=== PATIENT | female | born 1955 | race Caucasian/White ===

== ENCOUNTER 2017-02-26 22:07 | Emergency (ER) | payer MEDICAID ==
[2017-02-26] MEDS ORDERED: Sodium Chloride 0.9% 10 ML Syringe FLUSH PRN (23:51)
[2017-02-26] MEDS ORDERED: Labetalol 20 MG/4 ML Syringe IVPUSH ONE (23:51)
--- NOTE | 2017-02-27 01:12 | EDM.PDOC ---
ED HPI GENERAL MEDICAL PROBLEM - General Chief Complaint: Cardiovascular Problem Stated Complaint: HIHG BP Time Seen by Provider: 02/26/17 23:45 Source of Information: Reports: Patient History Limitations: Reports: No Limitations - History of Present Illness INITIAL COMMENTS - FREE TEXT/NARRATIVE: History of present illness: [62-year-old female who is presenting with headache at the base of her right occiput and high blood pressure. She had to put her dog down today and is sad about that. She's concerned that her blood pressure being elevated is causing her headache. She has no neck stiffness no fevers or chills no recent cold symptoms no chest pain or shortness of breath] Review of systems: As per history of present illness and below otherwise all systems reviewed and negative. Past medical history: As per history of present illness and as reviewed below otherwise noncontributory. Surgical history: As per history of present illness and as reviewed below otherwise noncontributory. Social history: No reported history of drug or alcohol abuse. Family history: As per history of present illness and as reviewed below otherwise noncontributory. Physical exam: HEENT: Atraumatic, normocephalic, pupils reactive, negative for conjunctival pallor or scleral icterus, mucous membranes moist, throat clear, neck supple, nontender, trachea midline. Lungs: Clear to auscultation, breath sounds equal bilaterally, chest nontender. Heart: S1S2, regular, negative for clicks, rubs, or JVD. Abdomen: Soft, nondistended, nontender. Negative for masses or hepatosplenomegaly. Negative for costovertebral tenderness. Extremities: Atraumatic, negative for cords or calf pain. Neurovascular unremarkable. Neuro: Awake, alert, oriented. Cranial nerves II through XII unremarkable. Cerebellum unremarkable. Motor and sensory unremarkable throughout. Exam nonfocal. Diagnostics: [] Therapeutics: [Patient was given labetalol 20 mg IV for elevated blood pressure came down nicely and her headache subsided. She was happy with result.] Impression: [Hypertension Headache] Plan: [She apparently is supposed to be on some blood pressure medications and needs to go to the pharmacy and pick those up and will work on doing that tomorrow.] Definitive disposition and diagnosis as appropriate pending reevaluation and review of above. Head Pain Score (Numeric/FACES): 7 - Related Data Allergies Allergy/AdvReac Type Severity Reaction Status Date / Time latex Allergy Rash Verified 02/26/17 23:41 metronidazole [From Flagyl] Allergy Nausea Verified 02/26/17 23:41 morphine Allergy Cannot Verified 02/26/17 23:41 Remember amoxicillin [Amoxicillin] AdvReac Dizziness Verified 02/26/17 23:41 atorvastatin calcium AdvReac Muscle Verified 02/26/17 23:41 [From Lipitor] Weakness Sulfa (Sulfonamide AdvReac Stomach Verified 02/26/17 23:41 Antibiotics) Ache Home Meds: Home Meds Ibuprofen 600 mg PO QID PRN 06/18/15 [History] Multivitamin with Minerals [Multiple Vitamin] 1 tab PO DAILY 06/18/15 [History] Ciprofloxacin HCl [Cipro] 250 mg PO BID 02/26/17 [History] Levothyroxine [Synthroid] 100 mcg PO DAILY 02/26/17 [History] Past Medical History HEENT History: Reports: Impaired Vision Cardiovascular History: Reports: Hypertension Genitourinary History: Reports: UTI, Recurrent 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: Musculoskeletal History: Reports: Arthritis, Other (See Below) Other Musculoskeletal History: ruptured disc with repair 1992 Endocrine/Metabolic History: Reports: Hypoparathyroidism Hematologic History: Reports: Blood Transfusion(s) Other Hematologic History: had some lymphs removed - Past Surgical History GI Surgical History: Reports: Cholecystectomy Other GI Surgeries/Procedures: lymph nodes removed from abd Musculoskeletal Surgical History: Reports: Other (See Below) Other Musculoskeletal Surgeries/Procedures:: left foot surgery, disc repair 1992 Social & Family History - Tobacco Use Smoking Status *Q: Current Every Day Smoker Years of Tobacco use: 40 Packs/Tins Daily: 1 Second Hand Smoke Exposure: Yes - Caffeine Use Caffeine Use: Reports: Coffee - Recreational Drug Use Recreational Drug Use: No ED ROS GENERAL - Review of Systems Review Of Systems: ROS reveals no pertinent complaints other than HPI. ED EXAM, GENERAL - Physical Exam Exam: See Below Course - Vital Signs Last Recorded V/S: Last Vital Signs Temp 35.9 C 02/26/17 23:37 Pulse 57 L 02/27/17 00:20 Resp 16 02/27/17 00:20 BP 147/87 H 02/27/17 00:20 Pulse Ox 96 02/27/17 00:20 - Orders/Labs/Meds Orders: Active Orders 24 hr Category Date Time Status Sodium Chloride 0.9% [Saline Flush] Med 02/26/17 23:51 Active 10 ml FLUSH ASDIRECTED PRN Saline Lock Insert [OM.PC] Stat Oth 02/26/17 23:51 Ordered Medication Orders Sodium Chloride (Saline Flush) 10 ml FLUSH ASDIRECTED PRN PRN Reason: Keep Vein Open Last Admin: 02/27/17 00:09 Dose: 10 ml Meds: Medications Generic Name Dose Route Start Last Admin Trade Name Freq PRN Reason Stop Dose Admin Sodium Chloride 10 ml 02/26/17 23:51 02/27/17 00:09 Saline Flush FLUSH 10 ml ASDIRECTED PRN Administration Keep Vein Open Discontinued Medications Generic Name Dose Route Start Last Admin Trade Name Freq PRN Reason Stop Dose Admin Labetalol HCl 20 mg 02/26/17 23:51 02/27/17 00:08 Normodyne IVPUSH 02/26/17 23:52 20 mg NOW ONE Administration Protocol Departure - Departure Time of Disposition: 01:11 Disposition: Home, Self-Care 01 Condition: Good Clinical Impression: Hypertension Qualifiers: Hypertension type: unspecified Qualified Code(s): I10 - Essential (primary) hypertension Headache Qualifiers: Headache type: unspecified Headache chronicity pattern: acute headache Forms: ED Department Discharge Additional Instructions: As we discussed to try to get back onto your blood pressure medications and follow up with your doctor so that you can be certain that you're taking the right dose of your medication. - My Orders Last 24 Hours: My Active Orders 02/26/17 23:51 Sodium Chloride 0.9% [Saline Flush] 10 ml FLUSH ASDIRECTED PRN Saline Lock Insert [OM.PC] Stat - Assessment/Plan Last 24 Hours: My Active Orders 02/26/17 23:51 Sodium Chloride 0.9% [Saline Flush] 10 ml FLUSH ASDIRECTED PRN Saline Lock Insert [OM.PC] Stat
[2017-02-27 01:28] VITALS: BP 147/93
== END 2017-02-27 01:29 | disposition home or self-care (01) ==
LOC: JP.ED 22:07
DX: I10 Essential (primary) hypertension (principal); E21.3 Hyperparathyroidism, unspecified; Z90.49 Acquired absence of other specified parts of digestive tract; Z98.890 Other specified postprocedural states; Z79.899 Other long term (current) drug therapy; Z91.040 Latex allergy status; Z88.5 Allergy status to narcotic agent; Z88.1 Allergy status to other antibiotic agents; Z88.2 Allergy status to sulfonamides; Z88.8 Allergy status to other drugs, medicaments and biological substances
CPT/HCPCS: 96374; 99284; J7050

== ENCOUNTER 2017-06-04 17:44 | Emergency (ER) | payer MEDICAID ==
[2017-06-04] MEDS ORDERED: Pantoprazole 40 MG Vial IVPUSH ONE (20:15)
[2017-06-04] MEDS ORDERED: Ondansetron 4 MG/2 ML SDV IVPUSH ONE (20:15)
[2017-06-04] MEDS ORDERED: Sodium Chloride 0.9% 1,000 ML IV SCH (20:15)
[2017-06-04] MEDS ORDERED: Sodium Chloride 0.9% 10 ML Syringe FLUSH PRN (20:38)
[2017-06-04] MEDS ORDERED: Iopamidol 612 MG/ML 150 ML Bottle IV SCH (20:45)
[2017-06-04] MEDS ORDERED: Sodium Chloride 0.9% 80 ML IV SCH (20:45)
[2017-06-04] MEDS ORDERED: cefTRIAXone 1 GM in Sodium Chloride 0.9% 50 ML IV ONE (20:57)
[2017-06-04] MEDS ORDERED: Lactated Ringers 1,000 ML IV SCH (22:15)
--- NOTE | 2017-06-05 00:33 | EDM.PDOC ---
ED HPI GENERAL MEDICAL PROBLEM - General Chief Complaint: Abdominal Pain Stated Complaint: ABD PAIN Time Seen by Provider: 06/04/17 19:45 Source of Information: Reports: Patient History Limitations: Reports: No Limitations - History of Present Illness INITIAL COMMENTS - FREE TEXT/NARRATIVE: abdominal pain: this is a 62-year-old female presents emergency room with complaints of abdominal pain 4 days. For last 3 days as on been unable to eat or drink fluids without nausea and vomiting. Today she reports her abdomen is quite distended and tender to touch, last bowel movement 4 days ago. Now feeling weak and fatigued. denies fever, chills, chest pain or shortness of breast. Past surgical history: gallbladder, lymph nodes removed from abdomen for unknown reason, back surgery, and right foot infection. Onset: Gradual Duration: Day(s): (4 days), Getting Worse Location: Reports: Abdomen Severity: Moderate Improves with: Reports: Immobilization, Rest Worsens with: Reports: Movement Context: Reports: Other (abdominal pain with nausea and vomiting) Associated Symptoms: Reports: Nausea/Vomiting, Weakness Abdomen Pain Score (Numeric/FACES): 5 - Related Data Allergies Allergy/AdvReac Type Severity Reaction Status Date / Time latex Allergy Rash Verified 02/26/17 23:41 morphine Allergy Cannot Verified 02/26/17 23:41 Remember amoxicillin [Amoxicillin] AdvReac Dizziness Verified 02/26/17 23:41 atorvastatin calcium AdvReac Muscle Verified 02/26/17 23:41 [From Lipitor] Weakness metronidazole [From Flagyl] AdvReac Nausea Verified 02/28/17 08:28 Sulfa (Sulfonamide AdvReac Stomach Verified 02/26/17 23:41 Antibiotics) Ache Home Meds: Home Meds Ibuprofen 600 mg PO QID PRN 06/18/15 [History] Multivitamin with Minerals [Multiple Vitamin] 1 tab PO DAILY 06/18/15 [History] Ciprofloxacin HCl [Cipro] 250 mg PO BID 02/26/17 [History] Levothyroxine [Synthroid] 100 mcg PO DAILY 02/26/17 [History] Past Medical History HEENT History: Reports: Impaired Vision Cardiovascular History: Reports: Hypertension Genitourinary History: Reports: UTI, 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: Musculoskeletal History: Reports: Arthritis, Other (See Below) Other Musculoskeletal History: ruptured disc with repair 1992 Endocrine/Metabolic History: Reports: Hypoparathyroidism Hematologic History: Reports: Blood Transfusion(s) Other Hematologic History: had some lymphs removed - Past Surgical History GI Surgical History: Reports: Cholecystectomy Other GI Surgeries/Procedures: lymph nodes removed from abd Musculoskeletal Surgical History: Reports: Other (See Below) Other Musculoskeletal Surgeries/Procedures:: left foot surgery, disc repair 1992 Social & Family History - Tobacco Use Smoking Status *Q: Unknown Ever Smoked Years of Tobacco use: 40 Packs/Tins Daily: 1 Second Hand Smoke Exposure: Yes - Caffeine Use Caffeine Use: Reports: Coffee - Recreational Drug Use Recreational Drug Use: No - Living Situation & Occupation Living situation: Reports: ED ROS GENERAL - Review of Systems Review Of Systems: See Below Constitutional: Reports: Malaise, Weakness, Other (unable to tolerate any solids or liquids 3 days, abdominal pain 4 days) HEENT: Reports: Throat Pain (Mouth and throat feel dry ) Respiratory: Reports: No Symptoms Cardiovascular: Reports: No Symptoms Endocrine: Reports: No Symptoms GI/Abdominal: Reports: Abdominal Pain, Decreased Appetite, Distension, Nausea, Vomiting : Reports: Pain (Low pelvis) Musculoskeletal: Reports: Muscle Pain Skin: Reports: No Symptoms Neurological: Reports: No Symptoms Psychiatric: Reports: No Symptoms Hematologic/Lymphatic: Reports: No Symptoms Immunologic: Reports: No Symptoms ED EXAM, GI/ABD - Physical Exam Exam: See Below Exam Limited By: No Limitations General Appearance: Alert, WD/WN, Moderate Distress Eyes: Bilateral: Normal Appearance Ears: Normal External Exam, Normal Canal, Hearing Grossly Normal, Normal TMs Nose: Normal Inspection, Normal Mucosa, No Blood Throat/Mouth: Normal Lips, Normal Teeth, Other (mucous membranes dry). No: Normal Voice Head: Atraumatic, Normocephalic Neck: Normal Inspection, Supple, Non-Tender, Full Range of Motion Respiratory/Chest: No Respiratory Distress, Lungs Clear, Normal Breath Sounds, No Accessory Muscle Use, Chest Non-Tender Cardiovascular: Regular Rate, Rhythm, No Murmur GI/Abdominal Exam: Distended, Guarding, Tender, Abnormal Bowel Sounds (Female) Exam: Deferred Rectal (Female) Exam: Deferred (uterus was read as a 7 mL 10 until the day but I did tell the doctor was 3 but was obstructing cystic susceptibility) Back Exam: Normal Inspection, Full Range of Motion (he will) Extremities: Normal Inspection, Normal Range of Motion, Non-Tender, No Pedal Edema, Normal Capillary Refill Neurological: Alert, Oriented, Normal Gait, No Motor/Sensory Deficits Psychiatric: Normal Affect, Normal Mood Skin Exam: Warm, Dry, Intact, Normal Color, No Rash Lymphatic: No Adenopathy Course - Vital Signs Last Recorded V/S: Last Vital Signs Temp 36.8 C 06/04/17 23:39 Pulse 71 06/04/17 23:39 Resp 16 06/04/17 23:39 BP 144/97 H 06/04/17 23:39 Pulse Ox 94 L 06/04/17 23:39 - Orders/Labs/Meds Orders: Active Orders 24 hr Category Date Time Status Gastrointestinal Tube Mgmt [RC] ASDIRECTED Care 06/04/17 23:15 Active Abdomen Pelvis wo Cont [CT] Stat Exams 06/04/17 20:14 Taken Iopamidol [Isovue-300 (61%)] Med 06/04/17 20:45 Active 123 ml IV . DIRECTED Lactated Ringers [Ringers, Lactated] 1,000 ml Med 06/04/17 22:15 Active IV ASDIRECTED Sodium Chloride 0.9% [Normal Saline] 1,000 ml Med 06/04/17 20:15 Active IV ASDIRECTED Sodium Chloride 0.9% [Normal Saline] 80 ml Med 06/04/17 20:45 Active IV ASDIRECTED Sodium Chloride 0.9% [Saline Flush] Med 06/04/17 20:38 Active 10 ml FLUSH ASDIRECTED PRN NG [Nasogastric Orogastric Tube Insertion] [OM.PC] Oth 06/04/17 23:15 Ordered Routine Medication Orders Sodium Chloride (Normal Saline) 1,000 mls @ 999 mls/hr IV ASDIRECTED SAUL Last Admin: 06/04/17 20:50 Dose: 999 mls/hr Sodium Chloride (Normal Saline) 80 mls @ 3 mls/sec IV ASDIRECTED SAUL Lactated Ringer's (Ringers, Lactated) 1,000 mls @ 500 mls/hr IV ASDIRECTED SAUL Last Admin: 06/04/17 22:42 Dose: 500 mls/hr Iopamidol (Isovue-300 (61%)) 123 ml IV . DIRECTED SAUL Sodium Chloride (Saline Flush) 10 ml FLUSH ASDIRECTED PRN PRN Reason: Keep Vein Open Last Admin: 06/04/17 20:52 Dose: 10 ml Labs: Laboratory Tests 06/04/17 06/04/17 06/04/17 Range/Units 19:06 20:33 20:33 WBC 14.4 H (4.5-11.0) K/uL RBC 5.98 H (3.30-5.50) M/uL Hgb 17.1 H D (12.0-15.0) g/dL Hct 48.1 H (36.0-48.0) % MCV 80 (80-98) fL MCH 29 (27-31) pg MCHC 36 (32-36) % Plt Count 259 (150-400) K/uL Neut % (Auto) 72 H (36-66) % Lymph % (Auto) 17 L (24-44) % [place] % (Auto) 10 H (2-6) % Eos % (Auto) 0 L (2-4) % Baso % (Auto) 0 (0-1) % Sodium 130 L (140-148) mmol/L Potassium 3.7 (3.6-5.2) mmol/L Chloride 92 L (100-108) mmol/L Carbon Dioxide 30 (21-32) mmol/L Anion Gap 11.7 (5.0-14.0) mmol/L BUN 32 H D (7-18) mg/dL Creatinine 1.3 H D (0.6-1.0) mg/dL Est Cr Clr Drug Dosing 43.37 mL/min Estimated GFR (MDRD) 42 L (>60) Glucose 110 H (74-106) mg/dL Lactic Acid (0.4-2.0) mmol/L Calcium 9.4 (8.5-10.1) mg/dL Total Bilirubin 0.7 D (0.2-1.0) mg/dL AST 21 (15-37) U/L ALT 27 (12-78) U/L Alkaline Phosphatase 99 (46-116) U/L Total Protein 7.7 (6.4-8.2) g/dL Albumin 3.8 (3.4-5.0) g/dL Globulin 3.9 H (2.3-3.5) g/dL Albumin/Globulin Ratio 1.0 L (1.2-2.2) Amylase 49 (25-115) U/L Lipase 96 (73-393) U/L Urine Color Yellow Urine Appearance Slightly cloudy Urine pH 5.0 (4.5-8.0) Ur Specific [place] 1.025 (1.008-1.030) Urine Protein Trace (NEGATIVE) mg/dL Urine Glucose (UA) Normal (NEGATIVE) mg/dL Urine Ketones 15 H (NEGATIVE) mg/dL Urine Occult Blood Moderate (NEGATIVE) Urine Nitrite Negative (NEGATIVE) Urine Bilirubin Small (NEGATIVE) Urine Urobilinogen 1 (NORMAL) mg/dL Ur Leukocyte Esterase Moderate (NEGATIVE) Urine RBC 5-10 H (0-5) Urine WBC 20-30 H (0-5) Ur Epithelial Cells Moderate Amorphous Sediment Few Urine Bacteria Many Urine Mucus Moderate 10/18/17 Range/Units 20:49 WBC (4.5-11.0) K/uL RBC (3.30-5.50) M/uL Hgb (12.0-15.0) g/dL Hct (36.0-48.0) % MCV (80-98) fL MCH (27-31) pg MCHC (32-36) % Plt Count (150-400) K/uL Neut % (Auto) (36-66) % Lymph % (Auto) (24-44) % [place] % (Auto) (2-6) % Eos % (Auto) (2-4) % Baso % (Auto) (0-1) % Sodium (140-148) mmol/L Potassium (3.6-5.2) mmol/L Chloride (100-108) mmol/L Carbon Dioxide (21-32) mmol/L Anion Gap (5.0-14.0) mmol/L BUN (7-18) mg/dL Creatinine (0.6-1.0) mg/dL Est Cr Clr Drug Dosing mL/min Estimated GFR (MDRD) (>60) Glucose (74-106) mg/dL Lactic Acid 1.4 (0.4-2.0) mmol/L Calcium (8.5-10.1) mg/dL Total Bilirubin (0.2-1.0) mg/dL AST (15-37) U/L ALT (12-78) U/L Alkaline Phosphatase (46-116) U/L Total Protein (6.4-8.2) g/dL Albumin (3.4-5.0) g/dL Globulin (2.3-3.5) g/dL Albumin/Globulin Ratio (1.2-2.2) Amylase (25-115) U/L Lipase (73-393) U/L Urine Color Urine Appearance Urine pH (4.5-8.0) Ur Specific [place] (1.008-1.030) Urine Protein (NEGATIVE) mg/dL Urine Glucose (UA) (NEGATIVE) mg/dL Urine Ketones (NEGATIVE) mg/dL Urine Occult Blood (NEGATIVE) Urine Nitrite (NEGATIVE) Urine Bilirubin (NEGATIVE) Urine Urobilinogen (NORMAL) mg/dL Ur Leukocyte Esterase (NEGATIVE) Urine RBC (0-5) Urine WBC (0-5) Ur Epithelial Cells Amorphous Sediment Urine Bacteria Urine Mucus Meds: Medications Generic Name Dose Route Start Last Admin Trade Name Freq PRN Reason Stop Dose Admin Sodium Chloride 1,000 mls @ 999 mls/hr 06/04/17 20:15 06/04/17 20:50 Normal Saline IV 999 mls/hr ASDIRECTED SAUL Administration Sodium Chloride 80 mls @ 3 mls/sec 06/04/17 20:45 Normal Saline IV ASDIRECTED SAUL Lactated Ringer's 1,000 mls @ 500 mls/hr 06/04/17 22:15 06/04/17 22:42 Ringers, Lactated IV 500 mls/hr ASDIRECTED SAUL Administration Iopamidol 123 ml 06/04/17 20:45 Isovue-300 (61%) IV . DIRECTED SAUL Sodium Chloride 10 ml 06/04/17 20:38 06/04/17 20:52 Saline Flush FLUSH 10 ml ASDIRECTED PRN Administration Keep Vein Open Discontinued Medications Generic Name Dose Route Start Last Admin Trade Name Freq PRN Reason Stop Dose Admin Ceftriaxone Sodium 1 gm/ 50 mls @ 100 mls/hr 06/04/17 20:57 06/04/17 21:45 Sodium Chloride IV 06/04/17 21:26 100 mls/hr ONETIME ONE Administration Ondansetron HCl 4 mg 06/04/17 20:15 06/04/17 20:51 Zofran IVPUSH 06/04/17 20:16 4 mg ONETIME ONE Administration Pantoprazole Sodium 40 mg 06/04/17 20:15 06/04/17 20:51 Protonix Iv IVPUSH 10/18/17 20:16 40 mg ONETIME ONE Administration - Re-Assessments/Exams Free Text/Narrative Re-Assessment/Exam: due to patient's acute abdominal pain, IV access and fluids were started, IV Zofran 4 mg, IV Protonix 40 mg. IV Rocephin 1 g labs: -Urine positive, WBCs positive leukocytes, CBC white count elevated at 14.14, chemistry panel -Imaging : impression distal small bowel obstruction. The transition zone appears to be within the mid line lower abdomen at the level of the mid to distal ileum. Small bowel space amount of free fluid. No pneumatosis or free air. 2. colonic diverticulosis. Space 3. status post cholecystectomy medications: IV Rocephin, IV Protonix 40 mg, IV fluids 2 L intervention: keep nothing by mouth, NG tube placed to low suction Plan: consulted with [facility], will accept patient for further care and treatment. Patient and her are agreeable to plan of care. We will transported via EMS. Departure - Departure Time of Disposition: 00:43 Disposition: DC/Tfer to Acute Hospital 02 Condition: Fair Clinical Impression: Small bowel obstruction - Discharge Information Referrals: Diogo Monzon MD [Primary Care Provider] - Care Plan Goals: small bowel obstruction Plan. Transfer to [facility] for admission. - My Orders Last 24 Hours: My Active Orders 06/04/17 20:14 Abdomen Pelvis wo Cont [CT] Stat 06/04/17 20:15 Sodium Chloride 0.9% [Normal Saline] 1,000 ml IV ASDIRECTED 06/04/17 20:38 Sodium Chloride 0.9% [Saline Flush] 10 ml FLUSH ASDIRECTED PRN 06/04/17 20:45 Iopamidol [Isovue-300 (61%)] 123 ml IV . DIRECTED Sodium Chloride 0.9% [Normal Saline] 80 ml IV ASDIRECTED 06/04/17 22:15 Lactated Ringers [Ringers, Lactated] 1,000 ml IV ASDIRECTED 06/04/17 23:15 Gastrointestinal Tube Mgmt [RC] ASDIRECTED NG [Nasogastric Orogastric Tube Insertion] [OM.PC] Routine - Assessment/Plan Last 24 Hours: My Active Orders 06/04/17 20:14 Abdomen Pelvis wo Cont [CT] Stat 06/04/17 20:15 Sodium Chloride 0.9% [Normal Saline] 1,000 ml IV ASDIRECTED 06/04/17 20:38 Sodium Chloride 0.9% [Saline Flush] 10 ml FLUSH ASDIRECTED PRN 06/04/17 20:45 Iopamidol [Isovue-300 (61%)] 123 ml IV . DIRECTED Sodium Chloride 0.9% [Normal Saline] 80 ml IV ASDIRECTED 06/04/17 22:15 Lactated Ringers [Ringers, Lactated] 1,000 ml IV ASDIRECTED 06/04/17 23:15 Gastrointestinal Tube Mgmt [RC] ASDIRECTED NG [Nasogastric Orogastric Tube Insertion] [OM.PC] Routine
[2017-06-05 00:53] VITALS: BP 138/73
== END 2017-06-05 02:55 ==
LOC: JP.ED 17:44
DX: K56.609 Unspecified intestinal obstruction, unspecified as to partial versus complete obstruction (principal); I10 Essential (primary) hypertension; Z91.040 Latex allergy status; Z88.2 Allergy status to sulfonamides; Z88.8 Allergy status to other drugs, medicaments and biological substances; Z88.5 Allergy status to narcotic agent; Z79.899 Other long term (current) drug therapy
CPT/HCPCS: 36415; 74176; 80053; 81001; 82150; 83605; 83690; 85025; 96361; 96365; 96375; 99285; C9113; J0696; J2405; J7040; J7050; J7120

== ENCOUNTER 2017-10-23 06:32 | Day surgery (SDC) | payer MEDICAID ==
[2017-10-23] MEDS ORDERED: Sodium Chloride 0.9% 10 ML Syringe FLUSH PRN (07:00)
[2017-10-23 08:11] VITALS: BP 156/88
--- NOTE | 2017-10-23 12:53 | OR ---
DATE OF PROCEDURE: 10/23/2017 POSTOPERATIVE CARE: Postoperative care will be provided mainly at the [address] [place] [address] [facility] in conjunction with [facility]. PREOPERATIVE DIAGNOSIS: Cataract, left eye. POSTOPERATIVE DIAGNOSIS: Cataract, left eye. PROCEDURE: Phacoemulsification with intraocular lens placement, left eye. ANESTHESIA: Topical and intracameral. ESTIMATED BLOOD LOSS: Minimal. COMPLICATIONS: None. PATHOLOGY SPECIMENS: None. SURGICAL FINDINGS: None. INDICATION FOR PROCEDURE: The patient is a 62-year-old female with history of a visually significant cataract in the left eye, which interfered with activities of daily living. This consisted of a nuclear sclerosis cataract. Following careful discussion of the risks, benefits and alternatives to cataract extraction with intraocular lens placement including blindness and , the patient elected to proceed, and informed, written consent was obtained prior to the procedure. DESCRIPTION OF THE PROCEDURE: The patient was previously identified, and a monica placed above the left eye. All sources, including the patient, indicated that the left eye was the correct eye. The patient was subsequently taken to the operating room where standard monitors were applied. The patient was then prepped and draped in the usual sterile fashion for ophthalmic surgery. Attention was first directed at the 12 o'clock position where a paracentesis port was fashioned. Shugar solution followed by Viscoat was instilled into the eye. Attention was then directed to the 8:30 position where a triplanar incision was made in a near-clear manner using a keratome. A continuous capsulorrhexis was then made using a combination of the cystotome and Utrata forceps. Hydrodissection was achieved using a balanced salt solution, and the lens rotated nicely. Phacoemulsification was then done using a modified [id number] technique without complication. Phaco time was 5.18 CDE. The remaining cortex was removed using the irrigation/aspiration handpiece. Provisc was then instilled into the eye. A Technis lens, model [id number], at 21.0 diopters was then placed in the capsular bag using an [place] injector. The remaining viscoelastic was removed using the irrigation/aspiration forceps. All wounds were then checked and found to be watertight. The lid speculum and drapes were removed. Maxitrol ointment was placed in the patient's left eye, and the eye was shielded. The patient tolerated the procedure well. The patient was instructed to follow up tomorrow. All needle and sponge counts were correct at the end of the procedure. Amrita Carpenter MD /[id number]
== END 2017-10-23 08:24 | disposition home or self-care (01) ==
LOC: JP.SDS 06:32
PROVIDERS: ATTEND Ophthalmology
DX: H25.12 Age-related nuclear cataract, left eye (principal); F17.200 Nicotine dependence, unspecified, uncomplicated; I10 Essential (primary) hypertension
CPT/HCPCS: 66984; C1780

== ENCOUNTER 2017-11-06 07:10 | Day surgery (SDC) | payer MEDICAID ==
[2017-11-06] MEDS ORDERED: Sodium Chloride 0.9% 10 ML Syringe FLUSH PRN (07:30)
--- NOTE | 2017-11-06 08:49 | OR ---
DATE OF PROCEDURE: 11/06/2017 POSTOPERATIVE CARE: Postoperative care will be provided mainly at the [address] [place] [address] [facility] in conjunction with [facility]. PREOPERATIVE DIAGNOSIS: Cataract, right eye. POSTOPERATIVE DIAGNOSIS: Cataract, right eye. PROCEDURE: Phacoemulsification with intraocular lens placement, right eye. ANESTHESIA: Topical and intracameral. ESTIMATED BLOOD LOSS: Minimal. COMPLICATIONS: None. PATHOLOGY SPECIMENS: None. SURGICAL FINDINGS: None. INDICATION FOR PROCEDURE: The patient is a 62-year-old female with history of a visually significant cataract in the right eye, which interfered with activities of daily living. This consisted of a nuclear sclerosis cataract. Following careful discussion of the risks, benefits and alternatives to cataract extraction with intraocular lens placement including blindness and , the patient elected to proceed, and informed, written consent was obtained prior to the procedure. DESCRIPTION OF THE PROCEDURE: The patient was previously identified, and a monica placed above the right eye. All sources, including the patient, indicated that the right eye was the correct eye. The patient was subsequently taken to the operating room where standard monitors were applied. The patient was then prepped and draped in the usual sterile fashion for ophthalmic surgery. Attention was first directed at the 12 o'clock position where a paracentesis port was fashioned. Shugar solution followed by Viscoat was instilled into the eye. Attention was then directed to the 8:30 position where a triplanar incision was made in a near-clear manner using a keratome. A continuous capsulorrhexis was then made using a combination of the cystotome and Utrata forceps. Hydrodissection was achieved using a balanced salt solution, and the lens rotated nicely. Phacoemulsification was then done using a modified [id number] technique without complication. Phaco time was 4.49 CDE. The remaining cortex was removed using the irrigation/aspiration handpiece. Provisc was then instilled into the eye. A Technis lens, model FV1385, at 22.0 diopters was then placed in the capsular bag using an [place] injector. The remaining viscoelastic was removed using the irrigation/aspiration forceps. All wounds were then checked and found to be watertight. The lid speculum and drapes were removed. Maxitrol ointment was placed in the patient's right eye, and the eye was shielded. The patient tolerated the procedure well. The patient was instructed to follow up tomorrow. All needle and sponge counts were correct at the end of the procedure. Amrita Carpenter MD /[id number]
[2017-11-06 08:50] VITALS: BP 140/94
== END 2017-11-06 08:52 | disposition home or self-care (01) ==
LOC: JP.SDS 07:10
PROVIDERS: ATTEND Ophthalmology
DX: E11.36 Type 2 diabetes mellitus with diabetic cataract (principal); J45.909 Unspecified asthma, uncomplicated; I10 Essential (primary) hypertension; F17.200 Nicotine dependence, unspecified, uncomplicated; Z88.1 Allergy status to other antibiotic agents; Z88.2 Allergy status to sulfonamides; Z88.5 Allergy status to narcotic agent; Z91.040 Latex allergy status; Z88.8 Allergy status to other drugs, medicaments and biological substances
CPT/HCPCS: 66984; C1780; J7050

== ENCOUNTER 2018-11-17 06:32 | Day surgery (SDC) | payer MEDICAID ==
--- NOTE | 2018-11-13 13:23 | HP ---
Tentatively scheduled for surgical procedure by Dr. Walter Connell on 11/17/2018. IDENTIFYING DATA: Dipika Conti is a 63-year-old female from [place], [place]. CHIEF COMPLAINT: Abdominal discomfort secondary to abdominal wall hernia. HISTORY OF PRESENT ILLNESS: Adult female, has noted a bulge and general discomfort in the upper aspect of the abdomen. On inspection, this was found to represent an abdominal wall hernia. She has history of surgeries of the abdomen including laparoscopic cholecystectomy and laparotomy and release of small-bowel obstruction in the remote past. With ongoing symptoms, she is now tentatively scheduled for a ventral wall hernia repair by Dr. Walter Connell. Symptoms include moderate abdominal cramping and bulge with a period of severe eructation. She has had no obstructive symptoms. Denying emesis, severe abdominal pain, or abdominal ileus. PAST SURGICAL HISTORY: Include cholecystectomy, laparotomy with release of small-bowel obstruction, debridement and repair of an ulcerated lesion over the dorsum of the left foot, cataract surgery, and norman biopsy. PAST MEDICAL HISTORY: Additional chronic health problems include chronic tobacco use, hypothyroidism, hyperlipidemia, and essential hypertension. HABITS: Smoker of one pack per day. Caffeine intake averages approximately one pot of coffee daily. She uses no alcohol. IMMUNIZATIONS: Does receive annual influenza vaccines. Tetanus booster provided in January 2018. No previous pneumococcal vaccine. ALLERGIES: REPORTS RASH WITH LATEX CONTACT, GENERAL MYALGIAS AND WEAKNESS WITH LIPITOR, NONSPECIFIC REACTION TO AMOXICILLIN, GI INTOLERANCE WITH SULFA AND METRONIDAZOLE, TRIPP INHIBITOR INDUCED COUGH WITH LISINOPRIL, AND NONSPECIFIC REACTION WITH USE OF MORPHINE PRODUCTS. SOCIAL HISTORY: She is . 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 She performs ADLs independently. Drives without difficulty. Family is available to provide assistance in the perioperative period. FAMILY HISTORY: Denies familial history of anesthetic reactions, coagulopathy, or bleeding disorder. REVIEW OF SYSTEMS: NEUROLOGIC: No history of stroke, seizures, focal weakness, or paresthesias. Glasses are worn. No history of glaucoma or retinopathy. Hearing is intact. CARDIAC: No history of congenital heart disease, rheumatic fever, murmur, MO, congestive heart failure, chest pain, palpitations, or syncope. She does have a history of hyperlipidemia, hypertension without diabetes. RESPIRATORY: Chronic lifelong smoker. No history of obstructive pulmonary disease, asthma, emphysema, chronic cough, tuberculosis, or purulent sputum production. GI: No history of hepatitis, jaundice, chronic dyspepsia, melena, or hematochezia. Status post cholecystectomy. : Mild urinary stress incontinence. No dysuria, renal failure, or gross hematuria. She is postmenopausal. MUSCULOSKELETAL: Occasional mild arthralgias including aching at the knees. No inflammatory arthritis. PHYSICAL EXAMINATION: GENERAL: Appearance is that of an adult female, in no acute distress. VITAL SIGNS: Height 5 feet 6.5 inches, weight 196 pounds with BMI of 31. Blood pressure 118/80, pulse 75, temperature 97.5 degrees Fahrenheit, respiratory rate 16. HEENT: Hearing is intact with normal canals and TMs. Pupils reactive to light. Sclerae anicteric. Extraocular eye movements intact. No nasal congestion. No oropharyngeal lesions or dental appliances. NECK: No adenopathy or thyromegaly. Brisk carotid pulses. No bruits. LUNGS: Clear and nontachypneic. Symmetrical aeration. HEART: Regular without murmurs or gallops noted. Normal sinus rhythm with occasional premature ventricular contractions on 12-lead EKG. No acute or chronic ischemic changes evident. ABDOMEN: Nondistended. Active sounds. No organomegaly. No guarding, rebound, or referred pain. No CVA tenderness. No abdominal bruits. Good femoral pulses. Surgical incision is noted in the ventral midline with bulge in the supraumbilical area. and RECTAL: Omitted. EXTREMITIES: No edema. No ischemic skin changes or varicosities. Good arterial pulses. Brisk capillary refill. IMPRESSION: 1. History of ventral wall hernia of the abdomen. 2. Prior history of laparoscopic cholecystectomy and laparotomy with release of bowel obstruction. 3. Hypothyroidism. 4. Hypertension. 5. Hyperlipidemia. 6. Chronic tobacco use. PLAN: The patient appears to be a stable candidate for tentatively scheduled procedure by Dr. Connell on 11/17/2018. She is instructed to avoid nonsteroidals and aspirin containing agents in preoperative period. Continue with routine use of antihypertensive and levothyroxine replacement therapies. Preoperative labs including CBC and BMP are drawn today with results to be forwarded on completion. Advised smoking cessation. Does recognize that surgical repair will require activity restrictions postoperatively to be outlined by surgical care team. The patient will call if other concerns arise. Jake Monzon MD /[id number]
[2018-11-17] MEDS ORDERED: Acetaminophen 500 MG Tab PO ONE (06:45)
[2018-11-17] MEDS ORDERED: Meropenem 500 MG SDV ONE (06:51)
[2018-11-17] MEDS ORDERED: Bupivacaine 0.5%/EPINEPHrine 1:200,000 50 ML MDV ONE (06:54)
[2018-11-17] MEDS: Dextrose 5%-Lactated Ringers 1,000 ML IV SCH ×4 (06:56→23:52)
[2018-11-17] MEDS ORDERED: fentaNYL 250 MCG/5 ML SDV ONE (07:11)
[2018-11-17] MEDS ORDERED: Rocuronium 50 MG/5 ML Vial ONE ×2 (07:11→08:55)
[2018-11-17] MEDS ORDERED: Propofol 200 MG/20 ML SDV ONE (07:11)
[2018-11-17] MEDS ORDERED: Ondansetron 4 MG/2 ML SDV ONE (07:11)
[2018-11-17] MEDS ORDERED: Neostigmine Methylsulfate 1 MG/ML 5 ML Syringe ONE (07:11)
[2018-11-17] MEDS ORDERED: Dexamethasone 4 MG/ML SDV ONE (07:11)
[2018-11-17] MEDS ORDERED: Glycopyrrolate 0.2 MG/ML 5 ML MDV ONE (07:11)
[2018-11-17] MEDS ORDERED: Albuterol/Ipratropium 3.0-0.5 MG/3 ML Neb Soln NEB ONE (07:30)
[2018-11-17] MEDS ORDERED: Ropivacaine 44 ML, Dexamethasone 8 MG, EPINEPHrine 0.4 MG, Sodium Chloride 0.9% 33.6 ML NERVRT SCH ×4 (08:30)
[2018-11-17] MEDS: ceFAZolin 2 GM in Premix Bag 1 BAG IV ONE ×2 (08:43→11:20)
[2018-11-17] MEDS ORDERED: fentaNYL 100 MCG/2 ML SDV ONE ×2 (09:35→09:40)
[2018-11-17] MEDS ORDERED: Ketorolac 60 MG/2 ML SDV IM ONE (09:46)
[2018-11-17] MEDS ORDERED: Albuterol/Ipratropium 3.0-0.5 MG/3 ML Neb Soln INH PRN (10:54)
[2018-11-17] MEDS ORDERED: Ondansetron 4 MG/2 ML SDV IVPUSH PRN (10:55)
[2018-11-17] MEDS ORDERED: hydrOXYzine HCl 100 MG/2 ML SDV IM PRN (10:55)
[2018-11-17] MEDS: Albuterol/Ipratropium 3.0-0.5 MG/3 ML Neb Soln INH SCH ×3 (12:53→21:28)
[2018-11-17] MEDS ORDERED: Pantoprazole 40 MG Vial IV SCH (14:00)
[2018-11-17] MEDS ORDERED: HYDROmorphone 1 MG/ML Syringe IV PRN (14:54)
[2018-11-17] MEDS: Ibuprofen 600 MG Tab PO SCH ×2 (15:00→21:28)
[2018-11-17] MEDS: fentaNYL 100 MCG/2 ML SDV IVPUSH PRN (17:19)
[2018-11-17] MEDS: Cyclobenzaprine 10 MG Tab PO PRN (19:44)
[2018-11-18] MEDS: fentaNYL 100 MCG/2 ML SDV IVPUSH PRN (00:11)
[2018-11-18] MEDS: Ibuprofen 600 MG Tab PO SCH ×2 (03:24→09:18)
[2018-11-18] MEDS: Cyclobenzaprine 10 MG Tab PO PRN (05:28)
[2018-11-18] MEDS: Albuterol/Ipratropium 3.0-0.5 MG/3 ML Neb Soln INH SCH (07:21)
[2018-11-18 07:22] VITALS: BP 123/67
[2018-11-18] MEDS ORDERED: Dextrose 5%-Lactated Ringers 1,000 ML IV SCH (07:28)
[2018-11-18] MEDS ORDERED: Acetaminophen/HYDROcodone 325-5 MG Tab PO PRN (07:28)
[2018-11-18] MEDS ORDERED: Levothyroxine 100 MCG Tab PO SCH (07:30)
[2018-11-18] MEDS: Losartan 50 MG Tab PO SCH ×2 (07:34→08:13)
[2018-11-18] MEDS: Hydrochlorothiazide 12.5 MG Cap PO SCH ×2 (07:35→08:13)
[2018-11-18] MEDS: Loratadine 10 MG Tab PO SCH ×2 (07:35→08:12)
--- NOTE | 2018-11-18 09:39 | DISCH ---
ADMISSION DIAGNOSES: 1. Incisional hernia. 2. Tobacco use disorder. 3. Hypothyroidism. 4. Dyslipidemia. 5. Osteoporosis. 6. Degeneration of lumbar intervertebral disk. 7. Leukocytosis, unspecified. 8. Essential hypertension. DISCHARGE DIAGNOSES: Diagnostic laparoscopy with repair of incarcerated hernia with mesh and incarcerated umbilical hernia, extensive lysis of adhesions and placement of Vicryl mesh for incarcerated incisional hernia and incarcerated umbilical hernia and extensive intraabdominal adhesions. Date of surgery: 11/17/2018. Surgeon: Walter Connell MD. HISTORY: Dipika Conti is a 63-year-old female with incarcerated incisional hernia. After preoperative evaluation and discussion of possible risks and possible complications, she wished to proceed with surgical procedure. HOSPITAL COURSE: Dipika had her surgery on 11/17/2018. She had no operative complications. On postoperative day #1, her pain was well managed. Activity was good. Vital signs stable. She was able to be discharged to home. PHYSICAL EXAMINATION: GENERAL: Dipika Conti is a 63-year-old female. VITAL SIGNS: Height is 5 feet 6 inches, weight is 191 pounds. TPR is 98.1, 73, 16, blood pressure 123/67. HEENT: Negative. NECK: Supple. HEART: Regular rate and rhythm. LUNGS: Clear. ABDOMEN: Dressings dry and intact. Abdominal binder is on. EXTREMITIES: Without peripheral edema. DISPOSITION: Discharged to home. CONDITION: Stable and improving. FOLLOWUP APPOINTMENT: Sirena Chiu PA-C, on 11/26/2018 at 9 a.m. HOME MEDICATIONS: 1. Ducor 5/325 mg 1 to 2 oral q.4 hours p.r.n. pain #42. 2. Motrin 600 mg q.6 hours p.r.n. pain #40. She is to resume home medication of: 1. ProAir inhaler 90 mcg inhalation as directed. 2. Vitamin C 500 mg oral daily. 3. Calcium magnesium with D one daily. 4. Vitamin D3 1000 International Units daily. 5. Levothyroxine 100 mcg oral daily. 6. Claritin 10 mg oral daily. 7. Losartan hydrochlorothiazide 50/12.5 mg oral daily. DIET: Usual diet as tolerated. Drink 8 to 10 glasses of water a day. ACTIVITY: No lifting greater than 10 pounds for 6 weeks. Other activity: Walk at least 6 times daily inside your home. Driving: Do not drive for 1 week and while on pain medication. Shower/bathing: May shower. DISCHARGE INSTRUCTIONS: Notify provider if any fever, increased pain, swelling, redness, nausea, vomiting. Keep site clean and dry. Wear abdominal binder with pressure dressing over hernia site for 6 weeks. SPECIAL INSTRUCTIONS: Use incentive spirometer 10 times every hour while awake.
--- NOTE | 2018-11-19 11:50 | OR ---
DATE OF PROCEDURE: 11/17/2018 PREOPERATIVE DIAGNOSIS: Recurrent incisional hernia. POSTOPERATIVE DIAGNOSES: 1. Recurrent incarcerated incisional hernia. 2. Incarcerated umbilical hernia. 3. Extensive intraabdominal adhesions. OPERATIVE PROCEDURES: Diagnostic laparoscopy with, 1. Repair of recurrent incarcerated incisional hernia with mesh (75925). 2. Repair of incarcerated umbilical hernia (03519). 3. Placement of Vicryl mesh to limit recurrent adhesion formation by displacing the pelvic and abdominal clarke from underlying viscera. ANESTHESIA: General. INDICATION FOR PROCEDURE: This is a 63-year-old female presenting with a recurrent incisional hernia located in the epigastric area above the umbilicus. The plan is to proceed with diagnostic laparoscopy, laparotomy if necessary, and repair of the hernia with mesh. Potential risks of the procedure including bleeding, infection, injury to underlying viscera, problems with the hernia recurring, or the mesh becoming infected were all reviewed, and the patient wishes to proceed. DETAILS OF PROCEDURE: The patient was taken to the operating room and placed in a supine position. After general endotracheal anesthesia was induced, a Serna catheter was inserted, and the abdomen was prepped and draped. Beginning in the left lower quadrant, a transverse incision was made, peritoneal cavity entered under direct vision with an Optiview trocar, and inflated to 15 mmHg pressure with CO2. Laparoscope was reinserted and no underlying trocar insertion site injuries were seen. Following this, two additional left-sided trocars were placed and eventually two right-sided 5 mm trocars were placed. The patient was noted to have two separate hernias, one was the recurrent incisional hernia located above the umbilicus, which contained some incarcerated omentum within it, and then a separate umbilical hernia which likewise contained some incarcerated omentum within it. The incarcerated components were then divided away from the hernia sac along with some of the hernia sac being excised with a Harmonic scalpel. Some additional adhesions between the omentum and small amount of anterior abdominal wall were also then taken down with a combination of sharp dissection and Harmonic scalpel dissection. At this point, a Ventrio ST mesh with a balloon-positioning system with 25 x 19 cm dimension was selected. Two sutures were then placed at the long axis of the mesh, and the skin marked where those sutures need to be brought up, thus orienting the mesh with the long axis in the vertical midline. Incisions were made at that location as well as where the balloon catheter would be pulled up directly over the center of the hernia. Mesh was then soaked in antibiotic-containing saline solution and placed in intraabdominal location. The sutures and balloon inflation catheter were then pulled up, and the balloon inflated, thus pushing the mesh up against the abdominal wall. Using two rows of circumferential absorbable tacking screws, the mesh was fixed to the abdominal wall. Wide margin from the area of the herniation was encountered in all cases. At that point, the balloon catheter was deflated, and the balloon removed. Good fixation of the mesh was once again confirmed. To limit recurrent adhesion formation, 30 cm area of Vicryl mesh was then placed, beginning down on the pelvic area, behind the urinary bladder, along the pelvic sidewalls, and up against the abdominal wall including the overlying mesh. At that point, no further problems were noted. The trocars were removed. The fascia at the 12-mm camera port was closed with 0 Vicryl stitch, and the skin with 4-0 Vicryl skin stitch. Dressing was applied. The patient was taken to the recovery room in a satisfactory condition. Walter Connell MD /[id number]
== END 2018-11-18 10:30 | disposition home or self-care (01) ==
LOC: JP.SDS 06:32 → JP.MS 09:45 → JP.SDS 11-18 10:30
PROVIDERS: ATTEND Surgery
DX: K43.0 Incisional hernia with obstruction, without gangrene (principal); K42.0 Umbilical hernia with obstruction, without gangrene; E03.9 Hypothyroidism, unspecified; E78.5 Hyperlipidemia, unspecified; M81.0 Age-related osteoporosis without current pathological fracture; M51.16 Intervertebral disc disorders with radiculopathy, lumbar region; D72.829 Elevated white blood cell count, unspecified; I10 Essential (primary) hypertension; F17.210 Nicotine dependence, cigarettes, uncomplicated; Z79.899 Other long term (current) drug therapy; Z79.890 Hormone replacement therapy; Z91.040 Latex allergy status
CPT/HCPCS: 88302; 94640; 94762; A9270-GY; C1713; C1781; C9113; J0171; J0690; J1100; J1885; J2020; J2185; J2405; J2704; J2710; J2795; J3010; J3410; J3490; J7042; J7050; J7620-GY